=== PATIENT | female | born 1965 | race American Indian/Alaskan Native ===

== ENCOUNTER 2017-08-25 20:05 | Observation (INO) | payer BC ==
[2017-08-25 20:08] VITALS: BMI 22.6
[2017-08-25] MEDS ORDERED: Dextrose 50% SYRINGE Inj (50 ml) IVP STA (20:25)
[2017-08-25 20:31] LABS: BASO # 0.03 K/mm3 (0.0-2.0); BASO % 0.3 % (0.0-3.0); EOS # 0.3 (0.0-0.7); EOS % 2.3 % (1.5-5.0); GRAN # 8.25 (1.4-6.5); GRAN % 74.5 % (50.0-68.0); HEMOGLOBIN 11.5 g/dL (12.0-16.0); LYMPH # 1.7 (1.2-3.4); LYMPH % 15.7 % (22.0-35.0); MEAN CELL VOLUME 83.1 fl (80.0-105.0); MEAN CORPUSCULAR HEMOGLOBIN 27.3 pg (25.0-35.0); MEAN CORPUSCULAR HGB CONC 32.9 g/dl (31.0-37.0); MEAN PLATELET VOLUME 10.5 fl (7.0-11.0); MONO # 0.8 (0.1-0.6); MONO % 7.2 % (1.0-6.0); RBC 4.21 10^6/uL (3.5-6.1); RED CELL DISTRIBUTION WIDTH 14.3 % (11.5-14.5); WHITE BLOOD COUNT 11.1 10^3/ul (4.5-11.0)
[2017-08-25 20:45] LABS: ALB/GLOB RATIO 1.2 (1.1-1.8); ALBUMIN 3.9 g/dL (3.0-4.8); CALCIUM 8.9 mg/dL (8.4-10.5)
--- NOTE | 2017-08-25 20:51 | ED PDOC ---
Arrival/HPI - General Chief Complaint: Weakness/Neurological Deficit Time Seen by Provider: 08/25/17 20:24 Historian: Patient, Family - History of Present Illness Narrative History of Present Illness (Text): 08/25/17 20:24 52 year old female, with past medical history schizophrenia, presents to the Emergency department accompanied by complaining of intermittent left sided weakness for past 3-4 days. Patient is a poor historian and answers questions occasionally. worries that patient may have taken extra medication leading to her symptoms. reports episode 8-9 months ago with similar symptoms. Patient denies any fever, chills, nausea, vomiting, diarrhea, abdominal pain, chest pain, neck stiffness, shortness of breath or any other complaints. Patient denies any suicidal or homicidal ideation. Time/Duration: < week (3 days) Symptom Onset: Gradual Symptom Course: Intermittent Activities at Onset: Light Context: Home Past Medical History - Provider Review Nursing Documentation Reviewed: Yes - Psychiatric Hx Substance Use: No Family/Social History - Physician Review Nursing Documentation Reviewed: Yes Family/Social History: No Known Family HX Smoking Status: Never Smoked Hx Alcohol Use: No Hx Substance Use: No Allergies/Home Meds Allergies/Adverse Reactions: Allergies Penicillins Allergy (Verified 08/25/17 20:08) ANAPHYLAXIS Home Medications: Home Meds Medication Instructions Recorded Confirmed Haloperidol [Haldol] 0.5 mg PO DAILY 08/25/17 08/25/17 Haloperidol [Haldol] 10 mg PO DAILY 08/25/17 08/25/17 LORazepam [Ativan] 1 mg PO TID PRN 08/25/17 08/25/17 Lamotrigine [Lamictal] 200 mg PO DAILY 08/25/17 08/25/17 Lamotrigine [Lamotrigine ER] 100 mg PO DAILY 08/25/17 08/25/17 Mirtazapine [Mirtazapine] 45 mg PO DAILY 08/25/17 08/25/17 Quetiapine Fumarate [Quetiapine 400 mg PO DAILY 08/25/17 08/25/17 Fumarate ER] Review of Systems - Physician Review All systems were reviewed & negative as marked: Yes - Review of Systems Constitutional: absent: Fevers Respiratory: absent: SOB Cardiovascular: absent: Chest Pain Gastrointestinal: absent: Abdominal Pain, Diarrhea, Nausea, Vomiting Musculoskeletal: Other (intermittent left sided weakness). absent: Neck Pain Physical Exam Vital Signs Reviewed: Yes Vital Signs Temp Pulse Resp BP Pulse Ox 08/25/17 20:23 98.5 F 104 H 18 118/80 96 Temperature: Afebrile Blood Pressure: Normal Pulse: Tachycardic Respiratory Rate: Normal Appearance: Positive for: Non-Toxic, Comfortable, Other (Patient is uncooperative with physical exam, expressing resistance.) Pain Distress: None Mental Status: Positive for: Alert and Oriented X 3 Finger Stick Blood Glucose: 68 - Systems Exam Head: Present: Atraumatic, Normocephalic Pupils: Present: PERRL Extroacular Muscles: Present: EOMI Conjunctiva: Present: Normal Neck: Present: Normal Range of Motion Respiratory/Chest: Present: Clear to Auscultation, Good Air Exchange. No: Respiratory Distress, Accessory Muscle Use Cardiovascular: Present: Regular Rate and Rhythm, Normal S1, S2. No: Murmurs Abdomen: No: Tenderness, Distention, Peritoneal Signs Upper Extremity: Present: Normal Inspection. No: Cyanosis, Edema Lower Extremity: Present: Normal Inspection. No: Edema Neurological: Present: GCS=15, CN II-XII Intact, Speech Normal Skin: Present: Warm, Dry, Normal Color. No: Rashes Psychiatric: Present: Alert, Oriented x 3, Normal Insight, Normal Concentration Medical Decision Making ED Course and Treatment: 08/25/17 20:24 Impression: 52 year old female presents to the Emergency department for generalized weakness. Plan: -- CT of Head -- EKG -- Labs -- Chest X-ray -- Dextrose -- Urinalysis -- Reassess and disposition Prior Visits: Notes and results from previous visits were reviewed. Progress Notes: 08/25/17 20:24 EKG: Ordered, reviewed, and independently interpreted the EKG. Rate : 105 BPM Rhythm : Sinus Tachycardia Interpretation : No ST-segment elevations or depressions, no T-wave inversions, normal intervals. 08/25/17 23:01 Patient is more awake, but continues to be drowsy. Repeat blood sugar normal. ? accidental medication overdose. Will admit to tele for observation. - Lab Interpretations Lab Results: 08/25/17 20:19 08/25/17 20:19 Lab Results 08/25/17 20:19: Alcohol, Quantitative < 10 08/25/17 20:19: Salicylates < 1 L, Acetaminophen < 10.0 L 08/25/17 20:19: Sodium 136, Potassium 3.9, Chloride 101, Carbon Dioxide 26, Anion Gap 14, BUN 20, Creatinine 1.2, Est GFR ( Amer) 58, Est GFR (Non- Af Amer) 48, Random Glucose 84, Calcium 8.9, Magnesium 2.1, Total Bilirubin 0.5 , AST 17, ALT 15, Alkaline Phosphatase 65, Total Protein 7.0, Albumin 3.9, Globulin 3.1, Albumin/Globulin Ratio 1.2 08/25/17 20:19: WBC 11.1 H, RBC 4.21, Hgb 11.5 L, Hct 35.0 L, MCV 83.1, MCH 27.3 , MCHC 32.9, RDW 14.3, Plt Count 281, MPV 10.5, Gran % 74.5 H, Lymph % (Auto) 15.7 L, [place] % (Auto) 7.2 H, Eos % (Auto) 2.3, Baso % (Auto) 0.3, Gran # 8.25 H , Lymph # (Auto) 1.7, [place] # (Auto) 0.8 H, Eos # (Auto) 0.3, Baso # (Auto) 0.03 08/25/17 10:30: Urine Opiates Screen Pending, Urine Methadone Screen Negative, Ur Barbiturates Screen Pending, Ur Phencyclidine Scrn Pending, Ur Amphetamines Screen Pending, U Benzodiazepines Scrn Pending, U Oth Cocaine Metabols Pending, U Cannabinoids Screen Pending 08/25/17 10:30: Urine Color Yellow, Urine Appearance Clear, Urine pH 7.0, Ur Specific [place] 1.020, Urine Protein Trace H, Urine Glucose (UA) 250 H, Urine Ketones 15 H, Urine Blood Negative, Urine Nitrate Negative, Urine Bilirubin Negative, Urine Urobilinogen 0.2, Ur Leukocyte Esterase Negative, Urine RBC 0 - 2, Urine WBC 0 - 2, Ur Epithelial Cells 4 - 5, Urine Bacteria Many - RAD Interpretation Radiology Orders: 08/25/17 20:24 CHEST PORTABLE [RAD] Stat 08/25/17 21:41 HEAD W/O CONTRAST [CT] Stat - EKG Interpretation Interpreted by ED Physician: Yes Type: 12 lead EKG - Medication Orders Current Medication Orders: Discontinued Medications Dextrose (Dextrose 50% Inj) 50 ml IVP STAT STA Stop: 08/25/17 20:26 Last Admin: 08/25/17 20:35 Dose: 50 ml IVP Administration Document 08/25/17 20:35 AD (Rec: 08/25/17 20:35 AD [id number]) Charges for Administration # of IVP Administrations 1 - Scribe Statement The provider has reviewed the documentation as recorded by the Scribe Rocio Palmer. All medical record entries made by the Scribe were at my direction and personally dictated by me. I have reviewed the chart and agree that the record accurately reflects my personal performance of the history, physical exam, medical decision making, and the department course for this patient. I have also personally directed, reviewed, and agree with the discharge instructions and disposition. Disposition/Present on Arrival - Present on Arrival Any Indicators Present on Arrival: No History of DVT/PE: No History of Uncontrolled Diabetes: No Urinary Catheter: No History of Decub. Ulcer: No History Surgical Site Infection Following: None - Disposition Have Diagnosis and Disposition been Completed?: Yes Diagnosis: Hypoglycemia, Weakness Disposition: HOME/ ROUTINE Disposition Time: 23:00 Condition: STABLE Discharge Instructions (ExitCare): Weakness (ED) Referrals: Ronen Delaney MD [Primary Care Provider] - Follow up with primary Forms: [employer]) ([employer])
[2017-08-25 20:55] LABS: ACETAMINOPHEN < 10.0 ug/ml (10.0-20.0); SALICYLATE < 1 mg/dL (2.0-20.0)
[2017-08-25 22:40] LABS: URINE BILIRUBIN NEGATIVE (NEGATIVE); URINE BLOOD NEGATIVE (NEGATIVE); URINE GLUCOSE (UA) 250 mg/dL (NEGATIVE); URINE LEUKOCYTE ESTERASE NEGATIVE Leu/uL (NEGATIVE); URINE PROTEIN TRACE mg/dL (<30 mg/dL); URINE UROBILINOGEN 0.2 E.U./dL (<1 E.U./dL)
[2017-08-25 22:41] LABS: URINE APPEARANCE CLEAR (CLEAR); URINE COLOR YELLOW (YELLOW)
[2017-08-25 22:59] LABS: URINE BACTERIA MANY (NEG); URINE RBC 0 - 2 /hpf (0-2); URINE WBC 0 - 2 /hpf (0-6)
[2017-08-25 23:02] LABS: BARBITURATES, UR NEGATIVE (NEGATIVE); BENZODIAZEPINES, UR POSITIVE (NEGATIVE); OPIATES, UR NEGATIVE (NEGATIVE); PHENCYCLIDINE, UR NEGATIVE (NEGATIVE)
[2017-08-25] MEDS ORDERED: Dextrose 5%/0.45% NS 1,000 ML IV SCH (23:45)
--- NOTE | 2017-08-26 08:37 | RAD ---
Date of service: 08/25/2017 HISTORY: r/o infiltrate COMPARISON: No prior. FINDINGS: LUNGS: No active pulmonary disease. PLEURA: No significant pleural effusion identified, no pneumothorax apparent. CARDIOVASCULAR: Normal. OSSEOUS STRUCTURES: No significant abnormalities. VISUALIZED UPPER ABDOMEN: Normal. OTHER FINDINGS: None. IMPRESSION: No active disease.
--- NOTE | 2017-08-26 08:50 | CT ---
Date of service: 08/25/2017 PROCEDURE: CT HEAD WITHOUT CONTRAST. HISTORY: r/o ICH COMPARISON: None available. TECHNIQUE: Axial computed tomography images were obtained through the head/brain without intravenous contrast. Radiation dose: Total exam DLP = 879 mGy-cm. This CT exam was performed using one or more of the following dose reduction techniques: Automated exposure control, adjustment of the mA and/or kV according to patient size, and/or use of iterative reconstruction technique. FINDINGS: HEMORRHAGE: No intracranial hemorrhage. BRAIN: No mass effect or edema. No atrophy or chronic microvascular ischemic changes. VENTRICLES: Unremarkable. No hydrocephalus. CALVARIUM: Unremarkable. PARANASAL SINUSES: Unremarkable as visualized. No significant inflammatory changes. MASTOID AIR CELLS: Unremarkable as visualized. No inflammatory changes. OTHER FINDINGS: None. IMPRESSION: No acute intracranial findings
[2017-08-26] MEDS ORDERED: QUEtiapine 200 mg XR Tab PO SCH ×2 (10:00→18:00)
--- NOTE | 2017-08-26 11:04 | CARD ---
APPROVED REPORT Date of service: 08/25/2017 EKG Measurement Heart [id number] <Conclusion> Sinus tachycardia Possible Left atrial enlargement
[2017-08-26 16:26] VITALS: BP 117/80; PULSE 97; RESP 19; TEMP 98.9; O2SAT 99
--- NOTE | 2017-08-26 19:41 | CON ---
DATE: 08/26/2017 HISTORY OF PRESENT ILLNESS: Shortly, the patient is a 52-year-old female with reported history of schizophrenia. The patient was admitted on the medical side for left-sided weakness. Psych consult was called because the patient has history of mental illness and the patient was worried that the patient had actually medication for her symptoms. The patient was seen and examined, discussed with the primary care physician, Dr. Delaney. The patient presented to be oddly related, flat affect. Thought process is mildly disorganized, but no acute psychosis observed. The patient seems to be a fair historian. The patient reports that she fills her medication in the pharmacy in [place], which was contacted at [phone] and medication list was obtained. The patient reported that she sees her Dr. Guevara, psychiatrist and she is compliant with the medication. All medications were reviewed and resumed. The patient was on lithium 300 mg daily as well as Xanax 0.5 mg once a day, Seroquel daily, lorazepam, lamotrigine, haloperidol, and mirtazapine. The patient reported that she sees her psychiatrist every 2 weeks. Last appointment was yesterday. Next appointment is next . The patient reported that she does not hear any voices, but she has history of hearing voices. The patient denied being depressed. Denied thoughts of harming herself or others. Denied intent or plan. The patient reports that medical team raised concern that the patient is taking more medication than she is prescribed. The patient's answer for that question was "my doctor is prescribing me medication and I am taking that medication." The patient also asked this marketing copywriter, "if they do not feel like I need to take medication why they are prescribing those medications to me (?)." The patient reported that she does not feel like she needs to stay in the hospital. The patient reported that she has fair appetite and sleep. The patient's son is next to her and the patient's son reported that the patient is at her baseline and expressed no concerns. This marketing copywriter had prolonged conversation with Dr. Delaney. As per Dr. Delaney, the patient has long history of mental illness. She was on ECT treatment, but the patient did not verbalize any thoughts of harming herself or others. 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 VITAL SIGNS: This marketing copywriter reviewed vital signs. Vital signs seems to be stable. Temperature 97, pulse 99, blood pressure 109/79, respiration 18, oxygen saturation is 87%. MEDICATIONS: Reviewed. The patient is on Lamictal, Ativan, Remeron and Seroquel. LABORATORY DATA: Reviewed. WBC cells 11.1. Chemistry reviewed. Urinalysis reviewed. Toxicology reviewed. The patient was positive on benzodiazepines only. MENTAL STATUS EXAMINATION: This marketing copywriter described above. The patient presented to be alert, oriented, pleasant, cooperative, oddly related, but not acutely psychotic, slow and low volume speech. Thought process seems to be concrete. Thought content, the patient denied visual, auditory or tactile hallucinations. Denied paranoid ideation. The patient denied thoughts of harming herself or others. Denied intent or plan. Insight and judgment seems to be fair. Impulses are well controlled. 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 The patient was on ECT treatment in the past. PLAN: All medications are confirmed. Discussed with the medical team. Most likely, the patient will be discharged today. No objection over that. As per family, the patient is on her baseline. The patient has followup appointment with her doctor and the patient reported to be compliant with medication, which was confirmed by the patient's pharmacy. This marketing copywriter will sign off. The patient deemed not to be in any danger to self or others. Thank you very much for letting me participate in the care of your patient. Sophia Cook MD
--- NOTE | 2017-08-27 11:15 | CP.PCM.PCO ---
Physician Communication Note - Physician Communication Note Physician Communication Note: PT WAS D/C
--- NOTE | 2017-08-29 16:30 | HP ---
HISTORY OF PRESENT ILLNESS: The patient is a 52-year-old female who presents to the emergency room with her complaining of intermittent left-sided weakness and mental status changes. According to the patient's , they were recently on a cruise vacation. The patient had not taken her psychotropic medicines for the week while on the cruise and when she returns, she possibly tried to double up on her medicines to make up for the loss. As per the patient's , she frequently seems out of sorts when she has attempted this in the past. So, the patient was brought to the emergency room. She is evaluated and admitted. The patient has a long history of schizophrenia and insomnia. She has status post electric shock therapy several times in the past. She denies any suicidal or homicidal ideation. MEDICATIONS: Included Haldol 0.5 mg daily and 10 mg daily, Ativan 1 mg three times a day, Lamictal 200 mg daily, lamotrigine 100 mg daily, mirtazapine 45 mg daily and quetiapine 400 mg daily. ALLERGIES: SHE IS KNOWN TO BE ALLERGIC TO PENICILLINS, WHICH CAUSE ANAPHYLAXIS IN THE PAST. SOCIAL HISTORY: She never smoked. She is a nonalcoholic drinker and is . REVIEW OF SYSTEMS: Otherwise unremarkable. PHYSICAL EXAMINATION: VITAL SIGNS: Her blood pressure is 118/80, heart rate is 104 beats per minute and temperature is 98.5 degrees Fahrenheit. GENERAL: The patient is awake and alert. However, seems very tired and groggy. HEAD, EYES, EARS, NOSE AND THROAT: Unremarkable. NECK: Supple with no lymphadenopathy. No goiter. LUNGS: Clear to auscultation and percussion. HEART: Regular. No murmurs are appreciated. ABDOMEN: Soft and nontender with no organomegaly. EXTREMITIES: Free of cyanosis, clubbing or edema. NEUROLOGICAL: The patient is awake, alert and oriented; however, seems obtunded. LABORATORY DATA AND IMAGING: Chest x-ray showed no acute disease. EKG showed sinus tachycardia. CAT scan of the head was negative. White blood cell count is 11.1, hemoglobin and hematocrit are 11.5 and 35 respectively, platelet count is 281. Sodium is 136, chloride is 101, potassium is 3.9, blood urea nitrogen is 20, creatinine 1.2, nonfasting glucose is 84. So, the patient is admitted with mental status changes, hypoglycemia. She will be reevaluated in the morning. Ronen Delaney MD
--- NOTE | 2017-08-30 08:26 | DS ---
HOSPITAL COURSE: The patient is a 52-year-old female, who was admitted with hypoglycemia, weakness, mental status changes. She had been on vacation and forgotten her psychotropic medications. On return from vacation, she tried to increase her dosage to make up for the loss and became obtunded, therefore was brought to the emergency room. She was observed overnight. When I saw the patient in the morning, she still seemed to be not her normal self. I do not think that she was on baseline compared to when I see her in the office. Morning laboratories were unremarkable. Her vital signs were stable. Later in the afternoon however, the patient had cleared. She was seen by her son and daughter as well as her . I spoke to the and he assured me that several hours after I saw her, she had cleared sufficiently to be taken home. Therefore, order for discharge to home was given. The patient is to continue to take her normal regimen of medications, and I warned not to increase the dosage unless consulting the physician first. The patient is discharged in an improved condition. FINAL DIAGNOSES: 1. Hypoglycemia. 2. Mental status changes. 3. Schizophrenia. 4. Insomnia. Ronen Delaney MD
== END 2017-08-26 17:22 | disposition home or self-care (01) ==
LOC: ED 20:05 → ERH 23:03 → 3RNO 08-26 00:39
PROVIDERS: ADMIT Internal Medicine; ATTEND Internal Medicine
DX: E16.2 Hypoglycemia, unspecified (principal); R53.1 Weakness; F20.9 Schizophrenia, unspecified; Z88.0 Allergy status to penicillin
CPT/HCPCS: 70450; 71045; 80053; 81001; 82948; 83735; 85025; 93005; 96374; 97161; 97530; 99285; G0378; G0480; G8978; G8979; G8980; J7042